=== PATIENT | female | born 1975 | race African-American/Black ===

== ENCOUNTER 2018-06-07 12:47 | Emergency (ER) | payer OTHER ==
[~2018-06-07] VITALS: Ht 182.9 cm; Wt 104.5 kg
[2018-06-07 13:14] VITALS: BP 157/111
[2018-06-07] MEDS ORDERED: KETOROLAC TROMETHAMINE 10 MG TABLET PO ONE (13:45)
== END 2018-06-07 14:50 | disposition home or self-care (01) ==
LOC: EMS 12:48
DX: S93.401A Sprain of unspecified ligament of right ankle, initial encounter (principal); X58.XXXA Exposure to other specified factors, initial encounter; Y93.89 Activity, other specified; Y92.89 Other specified places as the place of occurrence of the external cause; Y99.8 Other external cause status
CPT/HCPCS: 99284